=== PATIENT | male | born 1990 | race Caucasian/White ===

== ENCOUNTER 2021-03-13 22:27 | Emergency (ER) | payer SELFPAY ==
[2021-03-13 22:37] VITALS: BP 130/93; PULSE 67; RESP 16; TEMP 36.7; O2SAT 97
--- NOTE | 2021-03-13 22:45 | DI.RAD_ITS ---
Exam(s) XR HAND RT COMPLETE EXAM: XR HAND RT COMPLETE CLINICAL HISTORY: punched wall. TECHNIQUE: 2D digital imaging was performed. COMPARISON: No exams were available for comparison FINDINGS: There is dorsal soft tissue swelling. There is an oblique fracture of the base of the 4th metacarpal with some displacement. Adjacent 3rd and 5th metacarpal bases appear intact. There is also a fracture of the hamate. Distal radius and u real estate site analyst appear intact as do the scaphoid and lunate. IMPRESSION: Fractures as above. Recommend follow-up CT scan. DATA REPOSITORY: RADIATION DOSE DELIVERED:
--- NOTE | 2021-03-13 22:59 | W.ED.GENAD ---
Discharge Plan Disposition Patient Disposition: HOME Condition: Stable Discharge Details Chief Complaint: Orthopedic Clinical Impression: Closed fracture of fourth metacarpal bone Primary Care Provider: Unknown,Unknown ED Provider: Keaton Ulloa Home Meds and New Rx's Prescriptions: No Action No Known Home Meds RF: 0 Discharge Instructions Instructions: Hand Fracture (ED) Additional Instructions: It appears you broke your fourth metacarpal and this will likely require surgery. There may also be a subtle fracture through your hamate bone as well. As we discussed, this is your dominant hand and I cannot stress the importance of proper outpatient follow-up to ensure definitive care. Wear splint until reevaluation with orthopedics. Rest, elevate, cool compresses every 2 hours for 20 minutes. [id number] Tylenol and/or Motrin as directed for discomfort. I have placed you on the orthopedic list and would like you to contact Dr. Powell's office first thing Tuesday. Please watch for new or worsening symptoms and return to the ER for any concerns Referrals: Dez Powell MD [ [facility] STAFF PHYSICIAN] - Medical Decision Making This is a 30-year-old gentleman, [id number], who struck a wall hitting a stone at approximately 1-1/2 hours ago. Neuro, vascular, tendon intact. Concern for contusion versus hand fracture. No evidence of an open fracture. Will obtain x-ray. X-ray read by me as a fracture of the fourth metacarpal with displacement. Radiology agrees questions if there could be a hamate fracture as well. We will place the patient into a volar Ortho-Glass splint. Neuro, vascular, tendon intact status post splint application as evaluated by me. Patient will likely require surgery, will place the patient on the orthopedic list and have the patient contact Dr. Powell first thing Tuesday. Patient encouraged to return to the ER for new or worsening symptoms. Otherwise we discussed resting, elevating, cool compresses, [id number] Tylenol and/or Motrin for discomfort. Imaging Data Radiologic Study: Attestation: I personally reviewed and interpreted this imaging study as follows: Imaging: X-Ray Radiologist's impression: PROCEDURE INFORMATION: Exam: XR Right Hand Exam date and time: 03/13/2021 10:47 PM Age: 30 years old Clinical indication: Pain; Hand; Right; Patient HX: Patient punched a wall TECHNIQUE: Imaging protocol: XR Right hand. Views: 3 or more views. COMPARISON: No relevant prior studies available. FINDINGS: Bones/joints: There is an acute oblique fracture involving the base of the 4th metacarpal with dorsal displacement. I suspect there is a fracture of the hamate bone as well. Soft tissues: There is associated soft tissue swelling dorsally over the metacarpals and wrist. IMPRESSION: As detailed above. Thank you for allowing us to participate in the care of your patient HPI General Mode of arrival: ambulatory. Date/Time Provider Initiated Documentation: 03/13/21 22:42. Limitations to Documentation: no limitations. Information obtained by: patient. HPI Narrative: This is a 30-year-old gentleman, denies any significant past medical history, [id number], presents after punching a wall and striking a stud roughly 1.5 hours ago. Patient reports moderate pain, worse with movement. Denies any numbness, tingling, weakness or any other injuries. Patient did not take any tgwx-nei-oykftuy medications for discomfort but did drink some [place] Light for his pain Related Data Home Medications Medication Instructions Recorded Confirmed Unknown [No Known Home Meds] 03/13/21 03/13/21 Allergies Allergy/AdvReac Type Severity Reaction Status Date / Time No Known Allergies Allergy Unverified 03/13/21 22:39 General Stated Complaint: Orthopedic MARISEL: 4 Review of Systems Constitutional Constitutional: Denies fever(s) and Denies weakness Gastrointestinal Gastrointestinal: Denies nausea and Denies vomiting Musculoskeletal Musculoskeletal: Reports arthralgias, Denies numbness, Reports stiffness and Denies tingling Integumentary/Breasts Skin/Breast: Denies rash Neurologic Neurologic: Denies numbness, Denies tingling and Denies weakness [facility] Social History Smoking/Tobacco Use Status: Never Smoking risk assessment performed?: Yes Alcohol Intake: current Alcohol Intake frequency: 0-2 drinks per day Alcohol type: beer Drug use: Never Substance use type: does not use Do you feel safe at home: Yes Do you feel safe in your relationship?: Yes Exam Const General: cooperative, healthy appearing and comfortable Orientation: alert, awake and oriented x3 HENMT Head: normal to inspection, normocephalic and atraumatic Eyes General: appearance normal, both eyes and all related structures Conjunctivae: conjunctivae normal Neck Neck: normal visual inspection, trachea midline and supple Resp Effort & Inspection: normal respiratory effort and able to speak in complete sentences Cardio Rate: regular rate Rhythm: regular rhythm Skin General skin exam: no rashes or lesions noted Neuro General: patient alert, patient awake, moves all extremities and no focal motor deficits Cognition: normal cognition Speech: speech normal Gait: normal gait Sensory Exam: no sensory deficits noted Extrem General: capillary refill normal Hand/finger images: 1. Diffuse swelling, tenderness, worse at the base of the fourth and fifth metacarpal. Skin is intact. Full range of motion of his thumb, second and third digit, limited secondary discomfort in his fourth and fifth digit. Normal capillary refill and radial pulse. Neuro, vascular, tendon intact. Psych Appearance: grossly normal Mental Status: mental status grossly normal Course Vital Signs Vital signs: Vital Signs Temperature 36.7 C 03/13/21 22:37 Pulse 67 03/13/21 22:37 Respiratory Rate 16 03/13/21 22:37 Blood Pressure 130/93 H 03/13/21 22:37 Pulse Oximetry 97 03/13/21 22:37 Temperature 36.7 C 03/13/21 22:37 Temperature Source Skin 03/13/21 22:37 Pulse 67 03/13/21 22:37 Respiratory Rate 16 03/13/21 22:37 Respiratory Effort Non-Labored 03/13/21 22:39 Blood Pressure 130/93 H 03/13/21 22:37 Blood Pressure Position Sitting 03/13/21 22:37 Pulse Oximetry 97 03/13/21 22:37 Oxygen Delivery Method Room Air 03/13/21 22:37 Oxygen Flow Rate 0 03/13/21 22:37 Procedures Orthopedic Splinting/Casting Injury #1: Side: right Upper Extremity Injury Location: hand Upper Extremity Immobilizer: volar splint (Ortho-Glass)
--- NOTE | 2021-03-13 23:20 | DI.VRAD_ITS ---
PROCEDURE INFORMATION: Exam: XR Right Hand Exam date and time: 03/13/2021 10:47 PM Age: 30 years old Clinical indication: Pain; Hand; Right; Patient HX: Patient punched a wall TECHNIQUE: Imaging protocol: XR Right hand. Views: 3 or more views. COMPARISON: No relevant prior studies available. FINDINGS: Bones/joints: There is an acute oblique fracture involving the base of the 4th metacarpal with dorsal displacement. I suspect there is a fracture of the hamate bone as well. Soft tissues: There is associated soft tissue swelling dorsally over the metacarpals and wrist. IMPRESSION: As detailed above. Dictated and Authenticated by: Hernán Wood MD. Ordering:LUIS Pugh MD
--- NOTE | 2021-03-13 23:34 | NUR.NOTE ---
Nursing Note: Splint applied to right arm by ER Provider. CSM intact pre and post splint application.
== END 2021-03-13 23:49 | disposition home or self-care (01) ==
PROVIDERS: Emergency Provider Physician Assistant
DX: S62.394A Other fracture of fourth metacarpal bone, right hand, initial encounter for closed fracture (principal); W22.01XA Walked into wall, initial encounter
CPT/HCPCS: 29125; 99283; 73130

== ENCOUNTER 2021-03-18 02:58 | Outpatient (CLI) | payer SELFPAY ==
[2021-03-18 13:07] LABS: Source Nasal/Nares
[2021-03-18 18:14] LABS: COVID-19 PCR Negative (Negative)
== END 2021-03-18 02:59 | disposition home or self-care (01) ==
LOC: LBO 02:59
PROVIDERS: Visit Provider Student in an Organized Health Care Education/Training Program
DX: Z20.822 Contact with and (suspected) exposure to COVID-19 (principal); Z01.818 Encounter for other preprocedural examination
CPT/HCPCS: 87635

== ENCOUNTER 2021-03-19 11:06 | Day surgery (SDC) | payer SELFPAY ==
[2021-03-19 11:21] VITALS: BP 119/91; PULSE 68; RESP 16; TEMP 36.6; O2SAT 100
[2021-03-19] MEDS: Lactated Ringers 1,000 ML 100 ML IV (11:46)
--- NOTE | 2021-03-19 12:42 | W.ANESPRE ---
General Info Date of Service Date Performed: 03/19/21 Height: 5 ft 10 in Weight: 97.3 kg Body Mass Index (BMI): 30.7 Surgical Procedure: Operation Date: 03/19/21 13:10 Proposed Procedures Side Surgeon p Closed Reduction VS orif and perc pinning Right Saji Brown MD s Hand ORIF Finger Right Saji Brown MD Meds Allergies and Home Medications Allergies Allergy/AdvReac Type Severity Reaction Status Date / Time No Known Allergies Allergy Unverified 03/19/21 11:33 Home Medication Medication Instructions Recorded Unknown [No Known Home Meds] 03/13/21 Current Visit Medications: Current Medications Generic Name Dose Route Start Last Admin Trade Name Freq PRN Reason Stop Dose Admin Ringer's Solution 1,000 mls @ 100 mls/hr 03/19/21 06:00 03/19/21 11:46 IV 04/17/21 23:59 100 mls/hr INFUSION CARLY Administration Cefazolin Sodium/Dextrose 2 gm in 50 mls @ 100 mls/hr 03/19/21 06:00 Ancef Duplex IVPB 03/19/21 16:00 PREOP CARLY IV Miscellaneous Supplies 1 each 03/19/21 06:00 Iv Access IV 04/17/21 23:59 DIRECTED CARLY Sodium Chloride 0 ml 03/19/21 06:00 Normal Saline Flush 10 Ml Syr IV 04/17/21 23:59 PRN PRN Sodium Chloride 0 ml 03/19/21 06:00 Normal Saline 10 Ml Vial IJ 04/17/21 23:59 DIRECTED PRN Sterile Water 0 ml 03/19/21 06:00 Water,Injection,Sterile 10 Ml Vial IJ 04/17/21 23:59 DIRECTED PRN PFSH Active Problems Active Problems: Problem Status Onset Code Closed fracture of fourth metacarpal bone 03/17/21 S62.308A Closed fracture of fifth metacarpal bone of right hand 03/17/21 S62.306A Fracture of hamate of right wrist 03/17/21 S62.141A Surgical History Surgical History History of tooth extraction Tobacco Smoking/Tobacco Use Status: Never Alcohol Alcohol Intake: current Alcohol intake frequency: a few times a week Alcohol type: beer Substance Use Substance use: Never Substance use type: does not use Vital Signs and Lab Results Vital Signs Most Recent Vital Signs in EMR: Most Recent Vital Signs Temp Pulse Resp BP Pulse Ox 36.6 C 68 16 119/91 H 100 03/19/21 11:21 03/19/21 11:21 03/19/21 11:21 03/19/21 11:21 03/19/21 11:21 Lab Results Blood Type / Crossmatch: No Data to Display Complete Blood Count: No Data to Display Complete Metabolic Panel: No Data to Display Liver Function Panel: No Data to Display Coagulation Panel: No Data to Display Cardiac Panel: No Data to Display Arterial Blood Gas: No Data to Display Venous Blood Gas: No Data to Display Pancreas Panel: No Data to Display Thyroid Panel: No Data to Display Infectious Disease: Coronavirus (COVID-19)(PCR) Negative (Negative) 03/18/21 11:26 03/18/21 Coronavirus 2019 Source Nasal/Nares 03/18/21 11:26 03/18/21 Blood Cultures: No Data to Display Toxicology Panel: No Data to Display Anesthesia Assessment and Plan Anesthesia History Personal History: No History of Anesthesia Complications Family History: No Family History of Anesthesia Complications Exercise Tolerance Exercise Tolerance: Metabolic Equivalents>4 Pertinent Negatives Pertinent Negatives: No Symptoms of GERD, No Major Cardiovascular Symptoms or Complaints, No Major Pulmonary Symptoms or Complaints and No History of CVA/TIA Cardiac & Pulmonary Exam Cardiac Exam: Normal S1/S2 Heart Sounds Pulmonary Exam: Clear Bilateral Breath Sounds Airway Exam Known Difficult Airway: No Mallampati Class: 3 Mouth Opening: Normal (> 3cm) Thyromental Distance: Greater than 3 cm Facial Hair: Full Abernathy Neck Range of Motion: Full ROM Neck Circumference: Thick Teeth Condition: Normal Dentition ASA Classification ASA Score: ASA 2 Emergency Case?: No NPO Status NPO Status: NPO Clears >2 hours, Solids >8 hours Anesthesia Plan Resuscitation Status: Full Code Anesthesia Technique: General Anesthesia Airway Planned: LMA Monitors Used: Standard Monitors
[2021-03-19 12:45] VITALS: BMI 30.7
--- NOTE | 2021-03-19 14:15 | DI.RAD_ITS ---
Exam(s) XR HAND RT LIMITED EXAM: XR HAND RT LIMITED CLINICAL HISTORY: right hand ORIF TECHNIQUE: 2D and realtime digital imaging was performed. CONTRAST MATERIAL: Refer to procedure report. COMPARISON: No exams were available for comparison FINDINGS: Fluoroscopy was provided for Dr. Brown during the performance of a percutaneous pinning of fractures involving the hand and wrist. Please refer to the procedure report for complete details. Ka,r=5.71 mGy IMPRESSION: RADIATION DOSE DELIVERED:
[2021-03-19] MEDS: ceFAZolin 2 GM/50 ML BAG IVPB (14:36)
[2021-03-19 16:14] VITALS: BP 131/80; PULSE 62; RESP 16; TEMP 36.2; O2SAT 100
[2021-03-19 16:19] VITALS: BP 129/80; PULSE 62; RESP 15; TEMP 36.2; O2SAT 100
--- NOTE | 2021-03-19 16:29 | W.PM.DSUDISC ---
Discharge Plan Disposition Patient Disposition: HOME Condition: Stable Discharge Details Reason For Visit: Right hand surgery Attending Provider: Saji Brown Primary Care Provider: None,None Home Meds and New Rx's Prescriptions: New naproxen 250 mg tablet 250 - 500 mg PO BID PRN (Reason: Moderate pain or swelling) Qty: 60 RF: 0 oxycodone 5 mg tablet 5 - 10 mg PO Q4H PRN (Reason: moderate to severe pain) Qty: 22 RF: 0 Discharge Instructions Additional Instructions: Surgery: Right hand fourth and fifth carpometacarpal fracture dislocation closed reduction and percutaneous pinning Activity: Non-weightbearing in splint at all times. Recommend elevation to minimize swelling discomfort. Wiggle fingers every day to prevent stiffness. Prescriptions: Naproxen 250 mg take 1-2 every 12 hours with a meal as needed for moderate pain Oxycodone 5 mg take 1-2 every 4-6 hours as needed for severe pain You may use [id number] Tylenol (acetaminophen) as needed for mild pain. These pain medications may be taken all at once or in different combinations as needed. Also, recommend Colace (docusate) as a stool softener as surgery and pain medicine cause constipation. Dressings: Leave splint and dressing in place until follow-up. Keep clean and dry at all times. Follow-up: 10-[address] Brown Let us know right away if you develop any redness, drainage, fevers, chest pain, or trouble breathing. Do not drink alcohol or drive for at least 24 hours after anesthesia. Please call the office during business hours with any questions or concerns. Discharge Orders Discharge Orders: Discharge Order (Routine); Ordered 03/19/21 Ordered By: Saji Brown DS: Diagnosis Discharge Diagnosis (1) Closed fracture of fourth metacarpal bone: Status: Acute (2) Fracture of hamate of right wrist: Status: Acute (3) Closed fracture of fifth metacarpal bone of right hand: Status: Acute
--- NOTE | 2021-03-19 16:33 | W.PM.OP ---
Date of service: 03/19/21 Time of Service: 16:33 Operative Note Operative Note DATE OF PROCEDURE: 03/19/21 PRE-OP DIAGNOSIS: Right hand fourth and fifth carpometacarpal fracture dislocation POST-OP DIAGNOSIS: same PROCEDURE: 1. Closed reduction and percutaneous pinning fourth metacarpal base fracture, CPT#51684 2. Closed reduction percutaneous pinning fifth metacarpal hamate fracture dislocation, CPT# 78878 SURGEON: Saji Brown SHIPPING & RECEIVING LEAD: Deepak Uriostegui SHIPPING & RECEIVING LEAD: Jami Garrett ANESTHESIA TYPE: Local By Surgeon and General LMA/ETT Refer to Anesthesia Record ESTIMATED BLOOD LOSS: 5 PATHOLOGY: none sent TOURNIQUET TIME: 0 COMPLICATIONS: None Patient was transported to: PACU Patient's condition: stable Implants: 4x 0.045 k-wires Indications: Please see complete medical record for details. Findings: Displaced fourth metacarpal base fracture and hamate fracture fifth metacarpal CMC dislocation Procedure Description: In the operating room, general anesthesia was induced. The patient was positioned supine on the operating room table. All bony prominences were well-padded. Preoperative antibiotics were administered. The right hand was prepped and draped in the usual sterile fashion. The correct patient, procedure, and side of the procedure were all verified prior to incision. Fracture site was palpated and then manipulated via closed means with direct dorsal pressure and longitudinal traction on the ulnar digits with palpable reduction of the fourth fifth carpometacarpal and hamate fracture dislocation, which was confirmed on fluoroscopy. Percutaneously, 0.045 inch K wires were then directed across the fourth and fifth metacarpal bases as well as into the hamate as fixation. Initially a fifth metacarpal base hamate fracture pin was placed and used to more optimally direct a fourth metacarpal base into hamate pin. The fifth metacarpal pin was removed and trajectory improved although it maintained a volar direction. A ulnar to radial transverse pin was in place securing the 5th-4th metacarpals and a quad cortical fashion. The fifth metacarpal pin was removed and a more optimal fifth CMC hamate fracture pin placed. Direct pressure was removed from the closed reduction and fluoroscopy confirmed appropriate pin placement and maintain reduction. Lastly, a fourth pin directed transverse from ulnar to radial was placed across the base of the 5th-4th the third metacarpals engaging all 6 cortices to secure fixation. Multiple fluoroscopic views were obtained showing reduced fourth metacarpal base fracture as well as hamate fracture fifth metacarpal dislocation and scrutinized on pronated oblique images. Pins were tested with secure fixation and fracture dislocation site did not demonstrate any motion. 20 cc of 0.5% bupivacaine containing epinephrine was infiltrated about the injury and pin sites for postoperative analgesia. The hand was cleansed with peroxide followed by saline and then dried. The pins were carefully bent away from the skin and protection balls placed on each. The pin sites were then dressed with Xeroform, gauze, and hand wrapped in sterile soft roll. A plaster volar splint was then applied maintaining the wrist in extension. The patient awoke from anesthesia without complication and was transferred to the recovery room in a stable condition.
[2021-03-19 16:34] VITALS: BP 157/61; PULSE 67; RESP 16; TEMP 36.4; O2SAT 100
--- NOTE | 2021-03-19 16:44 | W.ANESPOSTOP ---
Postoperative Evaluation Date, Time and Location Date Performed: 03/19/21 Time Performed: 16:44 Patient Location: PACU Vital Signs Most Recent Imported Vital Signs: Most Recent Vital Signs Temp Pulse Resp BP Pulse Ox 36.4 C L 67 16 157/61 H 100 03/19/21 16:34 03/19/21 16:34 03/19/21 16:34 03/19/21 16:34 03/19/21 16:34 Pain Score Most Recent Pain Score: Most Recent Pain Score Pain Level 5 03/19/21 16:34 Assessment Mental Status: Awake (Alert & Oriented to Patient Baseline) Airway and Respiratory Function: Patent airway with normal (patient baseline) respiratory exam Cardiovascular Function: Hemodynamically Stable Hydration Status: Adequately Hydrated Nausea & Vomiting: No Nausea or Vomiting Pain: Pain is tolerable per patient Peripheral Nerve Block: Patient did not receive a nerve block
[2021-03-19 16:55] VITALS: BP 132/94; PULSE 57; RESP 16; TEMP 36.1; O2SAT 100
[2021-03-19] MEDS: oxyCODONE 5 MG TAB PO (16:57)
[2021-03-19 17:26] VITALS: BP 150/95; PULSE 59; RESP 18; TEMP 36.1; O2SAT 100
== END 2021-03-19 17:48 | disposition home or self-care (01) ==
PROVIDERS: Visit Provider Student in an Organized Health Care Education/Training Program
PROC: (CPT 26676; principal; 2021-03-19 13:00)
DX: S62.314A Displaced fracture of base of fourth metacarpal bone, right hand, initial encounter for closed fracture (principal); S62.141A Displaced fracture of body of hamate [unciform] bone, right wrist, initial encounter for closed fracture; S62.316A Displaced fracture of base of fifth metacarpal bone, right hand, initial encounter for closed fracture; W22.8XXA Striking against or struck by other objects, initial encounter
CPT/HCPCS: 26676; 26608; 73120; J0690; J1100; J1885; J2001; J2250; J2405

== ENCOUNTER 2021-03-30 11:38 | Outpatient (CLI) | payer SELFPAY ==
--- NOTE | 2021-03-30 11:00 | DI.RAD_ITS ---
Exam(s) XR HAND RT COMPLETE EXAM: XR HAND RT COMPLETE CLINICAL HISTORY: 1ST POST OP TECHNIQUE: COMPARISON: CR,XR XR HAND RT COMPLETE from 03/13/2021 CR,XR XR HAND RT COMPLETE from 03/13/2021 XR HAND RT LIMITED from 03/19/2021 XR HAND RT LIMITED from 03/19/2021 FINDINGS: Three views were obtained. There are multiple fixation pins transfixing fracture fragments of the chille mate and the base of the 4th metacarpal. Alignment appears unchanged comparison with intraoperative films obtained March 19. IMPRESSION: RADIATION DOSE DELIVERED: Total DLP
== END 2021-03-30 11:39 | disposition home or self-care (01) ==
LOC: DIORS 11:39
PROVIDERS: Visit Provider Physician Assistant
DX: S62.314D Displaced fracture of base of fourth metacarpal bone, right hand, subsequent encounter for fracture with routine healing (principal); S62.316D Displaced fracture of base of fifth metacarpal bone, right hand, subsequent encounter for fracture with routine healing; S62.141D Displaced fracture of body of hamate [unciform] bone, right wrist, subsequent encounter for fracture with routine healing
CPT/HCPCS: 73130

== ENCOUNTER 2021-04-14 11:54 | Outpatient (CLI) | payer SELFPAY ==
--- NOTE | 2021-04-14 11:30 | DI.RAD_ITS ---
Exam(s) XR HAND RT COMPLETE EXAM: XR HAND RT COMPLETE INDICATION: fifth metacaepal bone fx f/u. COMPARISON: CR XR HAND RT COMPLETE from 03/30/2021 TECHNIQUE: 2D digital imaging was performed. FINDINGS: There has been no change in fracture or hardware alignment. Prominent posterior soft tissue swelling remains present. No abnormal gas collection. DATA REPOSITORY: RADIATION DOSE DELIVERED:
== END 2021-04-14 11:55 | disposition home or self-care (01) ==
LOC: DIORS 11:54
PROVIDERS: Visit Provider Student in an Organized Health Care Education/Training Program
DX: S62.316D Displaced fracture of base of fifth metacarpal bone, right hand, subsequent encounter for fracture with routine healing (principal)
CPT/HCPCS: 73130

== ENCOUNTER 2021-04-28 15:23 | Outpatient (CLI) | payer SELFPAY ==
--- NOTE | 2021-04-28 15:15 | DI.RAD_ITS ---
Exam(s) XR HAND RT COMPLETE EXAM: XR HAND RT COMPLETE CLINICAL HISTORY: metacarpal fx f/u. TECHNIQUE: 2D digital imaging was performed. Three images were performed. PA, oblique and lateral views were obtained. COMPARISON: CR XR HAND RT COMPLETE from 04/14/2021 FINDINGS: BONES: There are stable post operative changes present. No new fracture or dislocation. The fracture s to the hamate and base of the 4th metacarpal are still visualized. JOINTS: The joint spaces are well maintained. No joint effusion is present. SOFT TISSUE: There has been a decrease in the soft tissue swelling of the hand. IMPRESSION: Stable postoperative changes. DATA REPOSITORY: RADIATION DOSE DELIVERED:
== END 2021-04-28 15:24 | disposition home or self-care (01) ==
LOC: DIORS 15:23
PROVIDERS: Visit Provider Student in an Organized Health Care Education/Training Program
DX: S62.141D Displaced fracture of body of hamate [unciform] bone, right wrist, subsequent encounter for fracture with routine healing (principal); S62.314D Displaced fracture of base of fourth metacarpal bone, right hand, subsequent encounter for fracture with routine healing; X58.XXXD Exposure to other specified factors, subsequent encounter
CPT/HCPCS: 73130